=== PATIENT | male | born 1950 | race Two or more races ===

== ENCOUNTER 2018-06-28 07:01 | Day surgery (SDC) | payer MEDICARE, BC ==
[2018-06-27 13:46] LABS: BASOPHILS % (AUTO) 0.5 % (0-1); EOSINOPHILS # (AUTO) 0.2 X10'3 (0-0.9); EOSINOPHILS % (AUTO) 4.7 % (0-6); HEMATOCRIT 37.2 % (42.0-52.0); HEMOGLOBIN 12.5 g/dl (14.0-17.9); LYMPHOCYTES # (AUTO) 1.3 X10'3 (1.1-4.8); LYMPHOCYTES % (AUTO) 27.4 % (21-51); MEAN CORPUSCULAR HEMOGLOBIN 30.7 PG (27.0-31.0); MEAN CORPUSCULAR HGB CONC 33.6 % (33.0-36.5); MEAN CORPUSCULAR VOLUME 91.3 FL (78-98); MEAN PLATELET VOLUME 8.4 FL (7.4-10.4); MONOCYTES # (AUTO) 0.4 X10'3 (0-0.9); MONOCYTES % (AUTO) 8.9 % (2-12); NEUTROPHILS # (AUTO) 2.7 X10'3 (1.8-7.7); NEUTROPHILS % (AUTO) 58.5 % (42-75); PLATELET COUNT 194 X10'3 (140-440); RED BLOOD COUNT 4.07 X10'6 (4.70-6.10); RED CELL DISTRIBUTION WIDTH 14.3 % (11.5-14.5); WHITE BLOOD COUNT 4.6 X10'3 (4.5-11.0)
[2018-06-27 14:16] LABS: ALBUMIN 3.3 G/DL (3.4-5.0); ANION GAP 7 (8-16); BLOOD UREA NITROGEN 13 MG/DL (7-18); BUN/CREATININE RATIO 8.1 (5.4-32.0); CALCIUM 7.9 MG/DL (8.5-10.1); CHLORIDE 105 MMOL/L (99-107); POTASSIUM 3.8 MMOL/L (3.5-5.1); SODIUM 140 MMOL/L (135-145); TOTAL CARBON DIOXIDE 27.7 MMOL/L (24-32); eGFR 44 ML/MIN
[2018-06-27 14:19] LABS: GLUCOSE 115 MG/DL (70-104)
[2018-06-27 14:21] LABS: INR 1.1 INR; PROTHROMBIN TIME 10.2 SECONDS (9.0-12.0)
[2018-06-28] VITALS (14 sets, daily range): BP systolic 111–151; BP diastolic 65–90
[~2018-06-28] VITALS: Ht 185.4 cm; Wt 106.5 kg
[~2018-06-28 07:01] MED LIST: APIX5TAB3 PO; ASPI-101 PO; CARV-49 PO; DIGO125T PO; DOXA4TAB3 PO; FAMO20TA8 PO; FLEC100T2 PO
[2018-06-28] MEDS ORDERED: LORazepam 0.5 MG tablet PO ONE (07:15)
[2018-06-28] MEDS ORDERED: diphenhydrAMINE 25mg capsule PO ONE (07:15)
[2018-06-28] MEDS ORDERED: MIDAZolam 5mg/ml 2ml vial IV ONE (07:15)
[2018-06-28] MEDS ORDERED: morphine 10mg/ml inj. IV ONE (07:15)
[2018-06-28] MEDS ORDERED: normal saline 1000ml 1,000 ML IV SCH (07:15)
[2018-06-28] MEDS ORDERED: IBUP-1984 PO (07:28)
[2018-06-28] MEDS ORDERED: AMIO200T27 PO (07:28)
[2018-06-28] MEDS ORDERED: atropine 0.1mg/ml 10ml syringe IV ONE (09:05)
[2018-06-28] MEDS ORDERED: amiodarone in dextrose, iso-osm 150mg/100ml bag IV ONE (09:10)
== END 2018-06-28 12:37 | disposition home or self-care (01) ==
LOC: SSTAY O 07:01
PROVIDERS: ATTEND Internal Medicine Cardiovascular Disease
DX: I48.1 Persistent atrial fibrillation (principal); I10 Essential (primary) hypertension; E78.5 Hyperlipidemia, unspecified; I25.10 Atherosclerotic heart disease of native coronary artery without angina pectoris; M19.90 Unspecified osteoarthritis, unspecified site; N40.0 Benign prostatic hyperplasia without lower urinary tract symptoms; G47.33 Obstructive sleep apnea (adult) (pediatric); E66.3 Overweight; I49.8 Other specified cardiac arrhythmias; Z68.31 Body mass index [BMI] 31.0-31.9, adult; Z91.041 Radiographic dye allergy status; Z87.891 Personal history of nicotine dependence; Z96.641 Presence of right artificial hip joint; Z72.89 Other problems related to lifestyle; Z79.1 Long term (current) use of non-steroidal anti-inflammatories (NSAID); Z79.01 Long term (current) use of anticoagulants; Z79.899 Other long term (current) drug therapy; Z98.890 Other specified postprocedural states; Z80.3 Family history of malignant neoplasm of breast; Z83.2 Family history of diseases of the blood and blood-forming organs and certain disorders involving the immune mechanism
CPT/HCPCS: 36415; 80048; 85025; 85610; 92960; 93005; J0282; J2250; J2270; J7030; Q0163; J0461

== ENCOUNTER 2020-02-28 14:49 | Outpatient (CLI) | payer MEDICARE, BC ==
[~2020-02-28] VITALS: Ht 185.4 cm; Wt 90.7 kg
[~2020-02-28 14:49] MED LIST changes: +AMIO200T27 PO; -ASPI-101 PO; -FAMO20TA8 PO; -FLEC100T2 PO; +IBUP-1984 PO
[2020-02-28 15:06] LABS: TOTAL HEMOGLOBIN 10.7 G/dl (14.0-18.0)
[2020-02-28] MEDS ORDERED: albuterol 2.5 MG/3 ML nebule NEB PRN (15:20)
== END 2020-02-28 23:59 | disposition home or self-care (01) ==
LOC: RT 14:49
PROVIDERS: ATTEND Internal Medicine Cardiovascular Disease
DX: D64.89 Other specified anemias (principal); Z79.899 Other long term (current) drug therapy
CPT/HCPCS: 71046; 85018; 94010; 94727; 94729

== ENCOUNTER 2021-10-01 07:31 | Day surgery (SDC) | payer MEDICARE, BC ==
[2021-09-30 15:19] LABS: BASOPHILS % (AUTO) 0.8 % (0-1); EOSINOPHILS # (AUTO) 0.1 X10'3 (0-0.9); EOSINOPHILS % (AUTO) 2.7 % (0-6); HEMATOCRIT 39.3 % (42.0-52.0); HEMOGLOBIN 13.3 g/dl (14.0-17.9); LYMPHOCYTES # (AUTO) 1.2 X10'3 (1.1-4.8); LYMPHOCYTES % (AUTO) 23.4 % (21-51); MEAN CORPUSCULAR HEMOGLOBIN 30.9 PG (27.0-31.0); MEAN CORPUSCULAR HGB CONC 33.8 g/dL (33.0-36.5); MEAN CORPUSCULAR VOLUME 91.4 FL (78-98); MEAN PLATELET VOLUME 8.3 FL (7.4-10.4); MONOCYTES # (AUTO) 0.4 X10'3 (0-0.9); MONOCYTES % (AUTO) 7.5 % (2-12); NEUTROPHILS # (AUTO) 3.4 X10'3 (1.8-7.7); NEUTROPHILS % (AUTO) 65.6 % (42-75); PLATELET COUNT 207 X10'3 (140-440); RED CELL DISTRIBUTION WIDTH 13.7 % (11.5-14.5); WHITE BLOOD COUNT 5.3 X10'3 (4.5-11.0)
[2021-09-30 15:48] LABS: ALBUMIN 3.7 G/DL (3.4-5.0); ANION GAP 9 (8-16); BLOOD UREA NITROGEN 33 MG/DL (7-18); BUN/CREATININE RATIO 17.1 (5.4-32.0); CALCIUM 8.4 MG/DL (8.5-10.1); CHLORIDE 108 MMOL/L (99-107); CREATININE 1.93 MG/DL (0.60-1.10); POTASSIUM 4.4 MMOL/L (3.5-5.1); SODIUM 139 MMOL/L (135-145); TOTAL CARBON DIOXIDE 22.4 MMOL/L (24-32); eGFR 35 ML/MIN
[2021-09-30 15:50] LABS: GLUCOSE 126 MG/DL (70-104)
[2021-10-01] VITALS (14 sets, daily range): BP systolic 106–129; BP diastolic 63–79
[~2021-10-01] VITALS: Ht 185.4 cm; Wt 99.8 kg
[2021-10-01] MEDS ORDERED: D3 (07:49)
[2021-10-01] MEDS ORDERED: APIX5TAB3 PO (07:49)
[2021-10-01] MEDS ORDERED: LEVO50TA8 PO (07:49)
[2021-10-01] MEDS ORDERED: morphine 10mg/ml inj. IV ONE (07:50)
[2021-10-01] MEDS ORDERED: diphenhydrAMINE 25mg capsule PO ONE (07:50)
[2021-10-01] MEDS ORDERED: MIDAZolam 1mg/ml 10ml vial IV ONE (07:50)
[2021-10-01] MEDS ORDERED: amiodarone 150mg/dext, iso-os 100 ML IV ONE (07:50)
[2021-10-01] MEDS ORDERED: atropine 0.1mg/ml 10ml syringe IV ONE (07:50)
[2021-10-01] MEDS ORDERED: normal saline 1000ml 1,000 ML IV SCH (07:50)
[2021-10-01] MEDS ORDERED: LORazepam 0.5 MG tablet PO ONE (07:50)
--- NOTE | 2021-10-01 09:05 | NUR ---
Morphine 5 mg IV and 5 mg versed IV administered during cardioversion procedure. 2 patient identifiers used during medication administration. Computer did not save this during procedure.
== END 2021-10-01 11:00 | disposition home or self-care (01) ==
LOC: SSTAY O 07:31
PROVIDERS: ATTEND Internal Medicine Cardiovascular Disease
DX: I48.0 Paroxysmal atrial fibrillation (principal); I10 Essential (primary) hypertension; E78.5 Hyperlipidemia, unspecified; N40.0 Benign prostatic hyperplasia without lower urinary tract symptoms; I25.10 Atherosclerotic heart disease of native coronary artery without angina pectoris; E66.3 Overweight; Z68.29 Body mass index [BMI] 29.0-29.9, adult; E78.49 Other hyperlipidemia; Z98.890 Other specified postprocedural states; Z79.899 Other long term (current) drug therapy; Z79.01 Long term (current) use of anticoagulants; Z88.8 Allergy status to other drugs, medicaments and biological substances; Z72.89 Other problems related to lifestyle; Z80.3 Family history of malignant neoplasm of breast
CPT/HCPCS: 36415; 80048; 83735; 85025; 92960; 93005; J2250; J2274; Q0163

== ENCOUNTER 2021-10-31 08:49 | Outpatient (CLI) | payer MEDICARE, BC ==
[~2021-10-31 08:49] MED LIST changes: +D3; -DIGO125T PO; -IBUP-1984 PO; +LEVO50TA8 PO
[2021-10-31 09:13] LABS: TOTAL HEMOGLOBIN 13.9 G/dl (14.0-18.0)
== END 2021-10-31 23:59 | disposition home or self-care (01) ==
LOC: RT 08:49
PROVIDERS: ATTEND Internal Medicine Cardiovascular Disease
DX: M25.78 Osteophyte, vertebrae (principal); Z79.899 Other long term (current) drug therapy
CPT/HCPCS: 71046; 85018; 94010; 94727; 94729

== ENCOUNTER 2025-01-03 07:52 | Day surgery (SDC) | payer MEDICARE, BC ==
[2025-01-02 10:27] LABS: BASOPHILS # (AUTO) 0.1 X10'3 (0-0.2); BASOPHILS % (AUTO) 1.5 % (0-1); EOSINOPHILS # (AUTO) 0.2 X10'3 (0-0.9); EOSINOPHILS % (AUTO) 4.3 % (0-6); HEMATOCRIT 39.5 % (42.0-52.0); HEMOGLOBIN 13.3 g/dl (14.0-17.9); LYMPHOCYTES % (AUTO) 25.5 % (21-51); MEAN CORPUSCULAR HEMOGLOBIN 30.6 PG (27.0-31.0); MEAN CORPUSCULAR HGB CONC 33.7 g/dL (33.0-36.5); MEAN CORPUSCULAR VOLUME 90.9 FL (78-98); MEAN PLATELET VOLUME 8.3 FL (7.4-10.4); MONOCYTES # (AUTO) 0.3 X10'3 (0-0.9); MONOCYTES % (AUTO) 8.4 % (2-12); NEUTROPHILS # (AUTO) 2.5 X10'3 (1.8-7.7); NEUTROPHILS % (AUTO) 60.3 % (42-75); PLATELET COUNT 188 X10'3 (140-440); RED BLOOD COUNT 4.34 X10'6 (4.70-6.10); RED CELL DISTRIBUTION WIDTH 13.9 % (11.5-14.5); WHITE BLOOD COUNT 4.1 X10'3 (4.5-11.0)
[2025-01-02 10:40] LABS: INR 1.1 INR; PROTHROMBIN TIME 10.9 SECONDS (9.0-12.0)
[2025-01-02 10:42] LABS: ALBUMIN 3.5 G/DL (3.4-5.0); ANION GAP 6 (8-16); BLOOD UREA NITROGEN 27 MG/DL (7-18); BUN/CREATININE RATIO 14.5 (10.0-20.0); CALCIUM 8.4 MG/DL (8.5-10.1); CHLORIDE 106 MMOL/L (99-107); CREATININE 1.86 MG/DL (0.60-1.10); GLUCOSE 91 MG/DL (70-104); SODIUM 138 MMOL/L (135-145); TOTAL CARBON DIOXIDE 26.5 MMOL/L (24-32); eGFR 36 ML/MIN
[2025-01-03] VITALS (10 sets, daily range): BP systolic 107–137; BP diastolic 61–82; PULSE 47–57; RESP 12–17; TEMP 98.1; O2SAT 95–100
[~2025-01-03] VITALS: Ht 185.4 cm; Wt 98.2 kg
[2025-01-03] MEDS ORDERED: amiodarone 150mg/dext, iso-os 100 ML IV ONE (08:05)
[2025-01-03] MEDS ORDERED: atropine 0.1mg/ml 10ml syringe IV ONE (08:05)
[2025-01-03] MEDS ORDERED: diphenhydrAMINE 25mg capsule PO ONE (08:05)
[2025-01-03] MEDS ORDERED: LORazepam 0.5 MG tablet PO ONE (08:05)
--- NOTE | 2025-01-03 08:14 | ELECTROCARDIOGRAPH REPORT ---
[facility] Test Date: 2025-01-03 Test Time: 08:11:56 Pat Name: PINEDA JEFFERS Department: [facility] Patient ID: [facility]-[id number] Room: Gender: M Executive Business Coach: BRIGETTE : 1950 Requested By: KRYSTIN ORTIZ Order Number: [id number] Reading MD: Dr. Bronson Rojas Measurements Intervals [place] Rate: 61 P: 0 SC: 0 QRS: -15 QRSD: 117 T: 1 QT: 464 QTc: 468 Interpretive Statements Atrial fibrillation Incomplete right bundle branch block Electronically Signed On 01-04-2025 9:42:[address] Bronson Rojas Please click the below link to view image of tracing.
[2025-01-03] MEDS ORDERED: LISI5TAB22 PO (08:16)
[2025-01-03] MEDS ORDERED: AMI200T PO (08:16)
[2025-01-03] MEDS ORDERED: LEVO75TA7 PO (08:16)
[2025-01-03] MEDS ORDERED: ALLO100T PO (08:16)
--- NOTE | 2025-01-03 10:45 | ELECTROCARDIOGRAPH REPORT ---
[facility] Test Date: 2025-01-03 Test Time: 10:43:26 Pat Name: PINEDA JEFFERS Department: [facility] Patient ID: [facility]-[id number] Room: Gender: M Applications Systems Analyst: BRIGETTE : 1950 Requested By: KRYSTIN ORTIZ Order Number: [id number] Reading MD: Dr. Bronson Rojas Measurements Intervals [place] Rate: 49 P: 24 FL: 246 QRS: -22 QRSD: 113 T: -2 QT: 481 QTc: 435 Interpretive Statements Sinus bradycardia Prolonged FL interval Borderline intraventricular conduction delay Low voltage, extremity leads Electronically Signed On 01-04-2025 9:44:[address] Bronson Rojas Please click the below link to view image of tracing.
[2025-01-03] MEDS: MIDAZolam 1mg/ml 10ml vial IV ONE (10:56)
[2025-01-03] MEDS: morphine 10mg/ml inj. IV ONE (10:56)
[2025-01-03] MEDS: normal saline 1000ml 1,000 ML IV SCH (10:56)
--- NOTE | 2025-01-04 01:25 | CARDIOLOGY REPORT ---
DATE OF SERVICE: 01/03/2025 DICTATING PHYSICIAN: JANENE Weber MD ELECTRICAL CARDIOVERSION REPORT PRIMARY PHYSICIAN: Abdullahi Palencia DO [employer] NURSING: JANENE Weber MD INDICATION: The patient is a 74-year-old male with a history of hypertension, hyperlipidemia, CAD, sick sinus syndrome with PAF. History of PAF dates back to 2016. Back then, he did have a left atrial thrombus which was treated with Eliquis, subsequently resolved. Subsequently, the patient was cardioverted. He was on flecainide and Eliquis. He did have recurrence of AFib with RVR in 2017. He had another cardioversion in 2018. Because of recurrence of AFib, flecainide changed to amiodarone. In 12/2024, he is still in AFib. After discussing risks, benefits, alternative options, the patient preferred to have cardioversion. Risks, benefits and alternative options discussed. Informed consent was obtained. The patient also has sick sinus syndrome and sinus bradycardia. That is why he is maintained on a low dose of carvedilol 6.25 mg p.o. b.i.d. DESCRIPTION OF PROCEDURE: Anterior and posterior patches were used using biphasic electric energy 200 joules x 2 and converted to normal sinus rhythm. He was bradycardic in the mid 50s. IMPRESSION: A 74-year-old male with persistent AFib converted to normal sinus rhythm. Continue amiodarone 200 mg a day, carvedilol 6.25 p.o. b.i.d. and Eliquis 2.5 p.o. b.i.d. RECOMMENDATIONS: Recommend diet, weight loss and exercise program. JANENE Weber MD TID: [id number] RECEIPT: [id number] / [facility]
== END 2025-01-03 12:10 | disposition home or self-care (01) ==
LOC: SSTAY O 07:52
PROVIDERS: ATTEND Internal Medicine Cardiovascular Disease
DX: I48.19 Other persistent atrial fibrillation (principal); I48.0 Paroxysmal atrial fibrillation; I45.10 Unspecified right bundle-branch block; I25.10 Atherosclerotic heart disease of native coronary artery without angina pectoris; I35.1 Nonrheumatic aortic (valve) insufficiency; I10 Essential (primary) hypertension; E78.5 Hyperlipidemia, unspecified; G47.30 Sleep apnea, unspecified; Z91.041 Radiographic dye allergy status; Z98.890 Other specified postprocedural states; Z79.899 Other long term (current) drug therapy
CPT/HCPCS: 36415; 80048; 85025; 85610; 92960; 93005; J2250; J2270; J7030; J2274